=== PATIENT | female | born 1970 | race Caucasian/White ===

== ENCOUNTER 2023-02-18 01:54 | Day surgery (SDC) | payer OTHER, SELFPAY ==
[2023-02-04 11:21] VITALS: BMI 31.2
--- NOTE | 2023-02-15 10:43 | SUR.PREOP ---
Patient called regarding upcoming procedure. no voicemail box set up.
[2023-02-18 06:52] VITALS: BMI 33.0
[2023-02-18 06:53] VITALS: BP 140/84; PULSE 84; RESP 20; TEMP 36.2; O2SAT 100
[2023-02-18] MEDS: LACTATED RINGERS 1,000 ML 150 ML IV CONT (07:02)
--- NOTE | 2023-02-18 07:51 | WPDANESEPPF ---
Anes - Initial Pre Proc Eval Procedure: Operation Date: 02/18/23 08:00 Proposed Procedures p Screening Colonoscopy - Kris Araujo MD Date/Time: 02/18/23 07:51 Surgeon: Kris Araujo MD Pre Op Diagnosis: neoplasm screening Patient Data Age: 52 Gender: F Height: 1.55 m Weight: 79.3 kg Last Vital Signs Temp 97.2 F L 02/18/23 06:53 Pulse 84 02/18/23 06:53 Resp 20 02/18/23 06:53 BP 140/84 02/18/23 06:53 Pulse Ox 100 02/18/23 06:53 O2 Del Method Room Air 02/18/23 06:53 Allergies Allergy/AdvReac Type Severity Reaction Status Date / Time No Known Allergies Allergy Verified 02/18/23 06:42 Home Medications Medication Instructions Recorded Confirmed Type rimegepant 75 mg disintegrating 75 mg PO ONCE PRN migraine 08/06/22 02/18/23 Rx tablet (Nurtec ODT) headache #10 tabs bupropion HCl 300 mg 24 hr tablet, 300 mg PO QAM #90 tabs 09/19/22 02/18/23 Rx extended release lithium carbonate 300 mg 900 mg PO DAILY #270 tabs 09/19/22 02/18/23 Rx tablet,extended release vilazodone 40 mg tablet (Viibryd) 40 mg PO DAILY #90 tabs 11/13/22 02/18/23 Rx aripiprazole 15 mg tablet 15 mg PO DAILY #90 tabs 11/26/22 02/18/23 Rx propranolol 80 mg capsule,24 80 mg PO DAILY #90 caps 12/25/22 02/18/23 Rx hr,extended release Patient hx anesthesia problems: none Family hx anesthesia problems: none Results Review: All pre-operative results and documents have been reviewed as part of the pre-operative evaluation. [facility] Family History Family History Father Diabetes mellitus Family history of cardiovascular disease Grandparent Diabetes mellitus Family history of cardiovascular disease Family history of malignant neoplasm of breast Mother Diabetes mellitus Family history of rheumatoid arthritis Social History Social History Smoking packs per day: 1 Smoking cigarettes per day: 20.0 Years smoked: 15 Smoking pack-years: 15.00 Smoking status: Former smoker Smoking end date: 04/01/02 Alcohol intake: current Alcohol use details: Socially Substance use type: does not use Lack of Transportation: No Lack of Food: Never True Current Housing: I Have Housing Concerned About Future Housing: No Difficulty Paying Gas/Electric Bills: No Difficulty Paying for Meds: No Currently Unemployed: No Education: Associate Degree Difficulty w/ Childcare or Family Care: No Living arrangements: other Additional living arrangements comments: with bassam Bowman Final PreProcedure Day of Procedure 02/18/23 07:51 Patient weight: obese Heart: regular rate and rhythm Lungs: clear to auscultation Airway: Mallampati scale class II Neurological: alert and oriented Last oral intake: >/= 8 hours ASA classification: II Emergent: no Anesthetic plan: proceed Anesthesia type and monitoring: general GIVS and standard monitoring Results Review: All pre-operative results and documents have been reviewed as part of the pre-operative evaluation. Informed Consent: The patient's anesthetic plan and its attendant risks and benefits were discussed with the patient/family/POA. Questions were solicited and answers provided to the satisfaction of the patient/family/POA.
--- NOTE | 2023-02-18 08:08 | PM.HPGS ---
History of Present Illness History of Present Illness Consent: Risks, benefits, and alternatives have been discussed and questions answered. Patient agrees to proceed with procedure. Chief complaint: neoplasm screening Narrative: Sia Dalton is a 52 year old female here for first screening colonoscopy Review of Systems Constitutional: Constitutional: Denies headache(s) and Denies weakness Eyes: Eyes: Denies blurry vision ENT: Reports Normal hearing present, Denies headache(s) and Denies neck pain Cardiovascular: Cardiovascular: Denies chest pain and Denies dyspnea Respiratory: Respiratory: Denies dyspnea Gastrointestinal: Gastrointestinal: Reports no additional gastrointestinal complaints Genitourinary: Genitourinary: Denies dysuria Musculoskeletal: Musculoskeletal: Denies neck pain Integumentary/Breasts: Skin/Breast: Denies dry skin Neurologic: Reports Normal hearing present, Denies headache(s) and Denies weakness Psychiatric: Psychiatric: Denies anxiety Endocrine: Endocrine: Denies change in body appearance Hematologic/Lymphatic: Hematologic/Lymphatic: Denies easy bleeding Allergic/Immunologic: Allergic/Immunologic: Denies urticaria PMF Family History Family History Father Diabetes mellitus Family history of cardiovascular disease Grandparent Diabetes mellitus Family history of cardiovascular disease Family history of malignant neoplasm of breast Mother Diabetes mellitus Family history of rheumatoid arthritis Social History Social History Smoking packs per day: 1 Smoking cigarettes per day: 20.0 Years smoked: 15 Smoking pack-years: 15.00 Smoking status: Former smoker Smoking end date: 04/01/02 Alcohol intake: current Alcohol use details: Socially Substance use type: does not use Lack of Transportation: No Lack of Food: Never True Current Housing: I Have Housing Concerned About Future Housing: No Difficulty Paying Gas/Electric Bills: No Difficulty Paying for Meds: No Currently Unemployed: No Education: Associate Degree Difficulty w/ Childcare or Family Care: No Living arrangements: other Additional living arrangements comments: with sp Meds Home Medications and Allergies Home Medications Medication Instructions Recorded Confirmed Type rimegepant 75 mg disintegrating 75 mg PO ONCE PRN migraine 08/06/22 02/18/23 Rx tablet (Nurtec ODT) headache #10 tabs bupropion HCl 300 mg 24 hr tablet, 300 mg PO QAM #90 tabs 09/19/22 02/18/23 Rx extended release lithium carbonate 300 mg 900 mg PO DAILY #270 tabs 09/19/22 02/18/23 Rx tablet,extended release vilazodone 40 mg tablet (Viibryd) 40 mg PO DAILY #90 tabs 11/13/22 02/18/23 Rx aripiprazole 15 mg tablet 15 mg PO DAILY #90 tabs 11/26/22 02/18/23 Rx propranolol 80 mg capsule,24 80 mg PO DAILY #90 caps 12/25/22 02/18/23 Rx hr,extended release Allergies Allergy/AdvReac Type Severity Reaction Status Date / Time No Known Allergies Allergy Verified 02/18/23 06:42 Vital Signs Vital Signs - 24 hr 02/18/23 06:53 Temperature 97.2 F L Pulse Rate 84 Respiratory Rate 20 Blood Pressure 140/84 Pulse Oximetry 100 Oxygen Delivery Room Air Exam Const: General: comfortable and no acute distress HENMT: Face/Nose/Sinus: Normal nares present Eyes: General: appearance normal, both eyes and all related structures Neck: Neck: no JVD Resp: Auscultation: clear to auscultation bilaterally Cardio: Rate: regular rate Rhythm: regular rhythm GI: Inspection: non-distended GI Palp: Yes Soft to palpation Skin: General skin exam: normal color Neuro: General: gait normal Speech: normal speech Extrem: General: normal to inspection Psych: Mental Status: mental status grossly normal Assessment and Plan Assessment and plan (1) Colon cancer screening: C
[2023-02-18 08:24] VITALS: BP 100/60; PULSE 85; RESP 20; O2SAT 98
[2023-02-18 08:34] VITALS: BP 118/74; PULSE 84; RESP 21; O2SAT 100
[2023-02-18 08:44] VITALS: BP 134/74; PULSE 74; RESP 21; O2SAT 100
== END 2023-02-18 08:48 | disposition home or self-care (01) ==
PROVIDERS: PCP Family Medicine; Visit Provider Internal Medicine Gastroenterology
PROC: 0DJD8ZZ Inspection of Lower Intestinal Tract, Via Natural or Artificial Opening Endoscopic (ICD-10-PCS; CPT 45378; principal; 2023-02-18 08:00)
DX: Z12.11 Encounter for screening for malignant neoplasm of colon (principal); K57.30 Diverticulosis of large intestine without perforation or abscess without bleeding; K64.8 Other hemorrhoids; E66.9 Obesity, unspecified; Z68.33 Body mass index [BMI] 33.0-33.9, adult; Z87.891 Personal history of nicotine dependence; Z82.49 Family history of ischemic heart disease and other diseases of the circulatory system; Z80.3 Family history of malignant neoplasm of breast
CPT/HCPCS: 45378; J7120